=== PATIENT | female | born 1945 | race Hispanic/Latino ===

== ENCOUNTER 2018-08-12 02:53 | Inpatient (IN) | payer MEDICARE ==
[2018-08-12] MEDS ORDERED: NACL 0.9% 1000 ML 1,000 ML ONE (03:14)
[2018-08-12] MEDS ORDERED: NACL 0.9% 1000 ML 1,000 ML IV ONE ×2 (03:20→20:24)
[2018-08-12] MEDS ORDERED: LOPRESSOR IV ONE (03:20)
[2018-08-12 03:43] LABS: Basophils % (Auto) 0.4 % (0.0-1.8); Eosinophils # (Auto) 0.1 K/mm3 (0.0-0.4); Eosinophils % (Auto) 1.7 % (0.0-4.3); Hematocrit 38.1 % (30.3-42.9); Hemoglobin 13.1 gm/dl (10.1-14.3); Lymphocytes # (Auto) 3.2 K/mm3 (1.2-5.4); Lymphocytes % (Auto) 41.1 % (13.4-35.0); Mean Corpuscular HGB Conc 34 % (30-34); Mean Corpuscular Volume 87 fl (79-97); Monocytes # (Auto) 0.7 K/mm3 (0.0-0.8); Monocytes % (Auto) 8.4 % (0.0-7.3); Platelet Count 194 K/mm3 (140-440); Red Cell Distribution Width 14.2 % (13.2-15.2)
[2018-08-12 03:52] LABS: INR 0.92 (0.87-1.13)
[2018-08-12 03:53] LABS: Partial Thromboplastin Time 25.4 Sec. (24.2-36.6)
--- NOTE | 2018-08-12 03:55 | Emergency Department Report ---
ED Palpitations HPI - General Chief Complaint: Arrhythmia/Palpitations Stated Complaint: CHEST PAIN Time Seen by Provider: 08/12/18 03:11 Source: patient, family, EMS Mode of arrival: Stretcher Limitations: No Limitations - History of Present Illness Initial Comments: 73-year-old female presents with complaint of palpitations. I reports history of SVT in the past. States she had an appointment with her fire sprinkler service technician, Dr. Arenas with [facility] 4 days ago. At that time she was in SVT. She was taken to [facility] and admitted. She states she underwent a cardiac cath which was normal. Her rate was under control the patient was discharged home. Tonight, patient states she was at dinner and began having palpitations. EMS was called, adenosine was given, patient was transported to [facility]. Patient was released from the ER. Upon arrival home, patient began actions and palpitations again, so EMS was again called. Patient was again in SVT. EMS gave 6 mg of adenosine which converted patient for a short period of time to sinus rhythm, however the SVT returned the patient was then given 12 mg of adenosine. Patient converted to sinus rhythm, however upon arrival patient is again in SVT. Patient denies chest pain, shortness of breath, nausea or vomiting. MD Complaint: rapid heart beat -: This evening Context: occured during rest Arrythmia History: SVT Associated Symptoms: anxiety. denies: chest pain, shortness of breath, nausea/vomiting Treatments Prior to Arrival: adenosine - Related Data Home Medications Medication Instructions Recorded Confirmed Last Taken ALPRAZolam [Xanax TAB] 0.5 mg PO PRN 08/12/18 08/12/18 08/11/18 Aspirin [Aspirin BABY CHEW TAB] 81 mg PO QDAY 08/12/18 08/12/18 08/11/18 Cetirizine HCl [All Day Allergy] 10 mg PO DAILY 08/12/18 08/12/18 08/11/18 Digoxin 125 mcg PO DAILY 08/12/18 08/12/18 08/11/18 Fenofibrate Nanocrystallized 54 mg PO DAILY 08/12/18 08/12/18 08/11/18 [Fenofibrate] Gabapentin [Neurontin] 300 mg PO Q8HR 08/12/18 08/12/18 08/11/18 Levothyroxine [Synthroid] 50 mcg PO QAM 08/12/18 08/12/18 08/11/18 Metoprolol Tartrate 25 mg PO BID 08/12/18 08/12/18 08/11/18 Rosuvastatin (Nf) [Crestor] 10 mg PO DAILY 08/12/18 08/12/18 08/11/18 Allergies Allergy/AdvReac Type Severity Reaction Status Date / Time codeine AdvReac Shortness Verified 08/12/18 03:20 of Breath ED Review of Systems ROS: Stated complaint: CHEST PAIN Other details as noted in HPI Comment: All other systems reviewed and negative Constitutional: denies: chills, fever Respiratory: denies: shortness of breath Cardiovascular: palpitations. denies: chest pain Gastrointestinal: denies: nausea, vomiting ED Past Medical Hx - Past Medical History Previous Medical History?: Yes Additional medical history: SVT, heart murmur - Social History Smoking Status: Never Smoker Substance Use Type: None - Medications Home Medications: Home Medications Medication Instructions Recorded Confirmed Last Taken Type ALPRAZolam [Xanax TAB] 0.5 mg PO PRN 08/12/18 08/12/18 08/11/18 History Aspirin [Aspirin BABY CHEW TAB] 81 mg PO QDAY 08/12/18 08/12/18 08/11/18 History Cetirizine HCl [All Day Allergy] 10 mg PO DAILY 08/12/18 08/12/18 08/11/18 History Digoxin 125 mcg PO DAILY 08/12/18 08/12/18 08/11/18 History Fenofibrate Nanocrystallized 54 mg PO DAILY 08/12/18 08/12/18 08/11/18 History [Fenofibrate] Gabapentin [Neurontin] 300 mg PO Q8HR 08/12/18 08/12/18 08/11/18 History Levothyroxine [Synthroid] 50 mcg PO QAM 08/12/18 08/12/18 08/11/18 History Metoprolol Tartrate 25 mg PO BID 08/12/18 08/12/18 08/11/18 History Rosuvastatin (Nf) [Crestor] 10 mg PO DAILY 08/12/18 08/12/18 08/11/18 History ED Physical Exam - General Limitations: No Limitations General appearance: alert, in no apparent distress - Head Head exam: Present: atraumatic, normocephalic - Eye Eye exam: Present: normal appearance - ENT ENT exam: Present: mucous membranes moist - Neck Neck exam: Present: normal inspection - Respiratory Respiratory exam: Present: normal lung sounds bilaterally. Absent: respiratory distress - Cardiovascular Cardiovascular Exam: Present: normal rhythm, tachycardia - GI/Abdominal GI/Abdominal exam: Present: soft. Absent: distended, tenderness - Extremities Exam Extremities exam: Absent: pedal edema, calf tenderness - Neurological Exam Neurological exam: Present: alert, oriented X3 - Psychiatric Psychiatric exam: Present: normal affect, normal mood - Skin Skin exam: Present: warm, dry, intact, normal color ED Course Vital Signs 08/12/18 08/12/18 08/12/18 02:54 02:57 03:00 Temperature 98.1 F Pulse Rate 156 H 153 H 184 H Respiratory 13 14 Rate Blood Pressure 136/74 136/74 O2 Sat by Pulse 100 100 100 Oximetry 08/12/18 08/12/18 08/12/18 03:16 03:30 03:48 Temperature Pulse Rate 130 H 72 Respiratory 18 14 Rate Blood Pressure 136/74 112/71 112/71 O2 Sat by Pulse 96 97 97 Oximetry 08/12/18 03:49 Temperature Pulse Rate Respiratory Rate Blood Pressure O2 Sat by Pulse 100 Oximetry - Reevaluation(s) Reevaluation #1: 08/12/18 03:55 Pt was given another 12 mg of adenosine upon arrival. This did convert to sinus tachycardia for approx 2 min, after which the SVT returned. Metoprolol 5 mg was given. Pt converted to NSR at a rate of 60-70s. - Consultations Consultation #1: 08/12/18 03:57 Spoke w/ Dr Jaimes w/ [facility]. States if continues to be refractory, place pt on cardizem drip. ED Medical Decision Making - Lab Data Result diagrams: 08/12/18 03:24 08/12/18 03:24 - EKG Data -: EKG Interpreted by Me EKG shows normal: axis, QRS complexes Rate: tachycardia (rate 167) - EKG Data Interpretation: other (SVT w/ ST depressions diffusely) 08/12/18 04:00 Following beta navneet, pt converted to NSR rate of 69. Repeat EKG shows resolution of ST depressions, normal intervals, QRS complexes. - Radiology Data Radiology results: report reviewed, image reviewed - Medical Decision Making 73-year-old female with history of SVT. Patient received multiple doses of adenosine and tonight with conversion of her rhythm to sinus by only for a brief period of time. Patient is given metoprolol 5 mg which has Patient is in normal sinus rhythm, rate between the 60s and 70s for the last 2.5 hours. Workup unremarkable. Financial Administration Officer, Dr Jaimes, advised to start cardizem drip if SVT was refractory. Patient has not required cardizem while here in ED. Spoke w/ Dr Johnson, hospitalist, agrees to admit the patient. - Differential Diagnosis SVT, ACS, pulm edema Critical Care Time: Yes Critical care time in (mins) excluding proc time.: 35 Critical care attestation.: If time is entered above; I have spent that time in minutes in the direct care of this critically ill patient, excluding procedure time. Critical Care Time: 35 minutes ED Disposition Clinical Impression: SVT (supraventricular tachycardia) Disposition: DC-09 OP ADMIT IP TO THIS HOSP Is pt being admited?: Yes Condition: Stable Time of Disposition: 04:40
[2018-08-12 03:59] LABS: BUN/Creatinine Ratio 13; Blood Urea Nitrogen 9 mg/dL (7-17); Hemolysis Index 17
--- NOTE | 2018-08-12 04:22 | XRay Report ---
FINAL REPORT PROCEDURE: XR CHEST 1V AP TECHNIQUE: Chest radiograph anteroposterior view. CPT 87530 HISTORY: palpitations COMPARISON: No prior studies are available for comparison. FINDINGS: Heart: Normal. Mediastinum/Vessels: Normal. Lungs/Pleural space: Normal. Bony thorax: No acute osseous abnormality. Life support devices: None. IMPRESSION: No acute cardiopulmonary abnormality.
[2018-08-12] MEDS ORDERED: TYLENOL PO PRN (05:32)
[2018-08-12] MEDS ORDERED: SODIUM CHLORIDE FLUSH SYRINGE 10 ML IV PRN (05:32)
[2018-08-12] MEDS ORDERED: ZOFRAN IV PRN (05:32)
--- NOTE | 2018-08-12 05:32 | History and Physical Report ---
<LENORA MATTHEW - Last Filed: 08/12/18 05:43> History of Present Illness Date of examination: 08/12/18 Date of admission: 08/12/2018 Chief complaint: Palpitation History of present illness: Patient is a 73-year-old female with past medical history of hypothyroidism, anxiety, irregular heart rate, peripheral neuropathy, hypertension hy perlipidemia who presents to the ER with complaint of palpitations. Patient states that earlier this evening she had an episode of SVT and was taken to [facility] by EMS, she was seen and her SVT was converted, and she was discharged home. Patient states that she was on her way back home the symptoms restarted again, she was having severe palpitation and EMS was called and take her to [facility]. Patient states that earlier this week (4 days ago) she saw her repatcher (Dr. Arenas) with [facility] who had performed a heart cath, which was she was told was within normal limits, she also states that she had an echocardiogram last month with her cardiologists. Patient reports a long standing history of SVTs, she reports palpitations and diaphoresis, patient denies LOC, denies headache, denies dizziness, denies chest pain, denies shortness of breath. On arrival to the ER patient's heart rate was 153, patient had already received 6 mg of adenosine by EMS prior to arrival, and converted to sinus rhythm. Patient was given an additional of 12 mg of IV adenosine in the ER and converted back to sinus rhythm. Patient remains in sinus rhythm with a heart rate of 69, she is admitted for monitoring of SVT, cardiology is consulted for further evaluation. Past History Past Medical History: arrhythmia, hypertension, hyperlipidemia, hypothyroidism Past Surgical History: PTCA Social history: no significant social history, lives with family Family history: no significant family history Medications and Allergies Allergies Allergy/AdvReac Type Severity Reaction Status Date / Time codeine AdvReac Shortness Verified 08/12/18 03:20 of Breath Home Medications Medication Instructions Recorded Confirmed Last Taken Type ALPRAZolam [Xanax TAB] 0.5 mg PO PRN 08/12/18 08/12/18 08/11/18 History Aspirin [Aspirin BABY CHEW TAB] 81 mg PO QDAY 08/12/18 08/12/18 08/11/18 History Cetirizine HCl [All Day Allergy] 10 mg PO DAILY 08/12/18 08/12/18 08/11/18 History Digoxin 125 mcg PO DAILY 08/12/18 08/12/18 08/11/18 History Fenofibrate Nanocrystallized 54 mg PO DAILY 08/12/18 08/12/18 08/11/18 History [Fenofibrate] Gabapentin [Neurontin] 300 mg PO Q8HR 08/12/18 08/12/18 08/11/18 History Levothyroxine [Synthroid] 50 mcg PO QAM 08/12/18 08/12/18 08/11/18 History Metoprolol Tartrate 25 mg PO BID 08/12/18 08/12/18 08/11/18 History Rosuvastatin (Nf) [Crestor] 10 mg PO DAILY 08/12/18 08/12/18 08/11/18 History Active Meds: Active Medications Enoxaparin Sodium (Lovenox) 40 mg SUB-Q QDAY ALISHA Review of Systems Cardiovascular: palpitations Exam - Constitutional Vitals: Temp Pulse Resp BP Pulse Ox 98.1 F 72 14 112/71 100 08/12/18 02:57 08/12/18 03:30 08/12/18 03:30 08/12/18 03:48 08/12/18 03:49 General appearance: Present: no acute distress - EENT Eyes: Present: EOM intact ENT: hearing intact - Neck Neck: Present: supple - Respiratory Respiratory effort: normal - Cardiovascular Rhythm: regular Heart Sounds: Present: S1 & S2 - Extremities Extremities: no ischemia, No edema Peripheral Pulses: within normal limits - Abdominal General gastrointestinal: Present: soft, non-distended - Integumentary Integumentary: Present: warm, dry - Musculoskeletal Musculoskeletal: strength equal bilaterally - Psychiatric Psychiatric: cooperative - Neurologic Neurologic: moves all extremities Results - Labs CBC & Chem 7: 08/12/18 03:24 08/12/18 03:24 Labs: Laboratory Last Values WBC 7.8 K/mm3 (4.5-11.0) 08/12/18 03:24 RBC 4.40 M/mm3 (3.65-5.03) 08/12/18 03:24 Hgb 13.1 gm/dl (10.1-14.3) 08/12/18 03:24 Hct 38.1 % (30.3-42.9) 08/12/18 03:24 MCV 87 fl (79-97) 08/12/18 03:24 MCH 30 pg (28-32) 08/12/18 03:24 MCHC 34 % (30-34) 08/12/18 03:24 RDW 14.2 % (13.2-15.2) 08/12/18 03:24 Plt Count 194 K/mm3 (140-440) 08/12/18 03:24 Lymph % (Auto) 41.1 % (13.4-35.0) H 08/12/18 03:24 Hartley % (Auto) 8.4 % (0.0-7.3) H 08/12/18 03:24 Eos % (Auto) 1.7 % (0.0-4.3) 08/12/18 03:24 Baso % (Auto) 0.4 % (0.0-1.8) 08/12/18 03:24 Lymph # 3.2 K/mm3 (1.2-5.4) 08/12/18 03:24 [place] # 0.7 K/mm3 (0.0-0.8) 08/12/18 03:24 Eos # 0.1 K/mm3 (0.0-0.4) 08/12/18 03:24 Baso # 0.0 K/mm3 (0.0-0.1) 08/12/18 03:24 Seg Neutrophils % 48.4 % (40.0-70.0) 08/12/18 03:24 Seg Neutrophils # 3.7 K/mm3 (1.8-7.7) 08/12/18 03:24 PT 12.8 Sec. (12.2-14.9) 08/12/18 03:24 INR 0.92 (0.87-1.13) 08/12/18 03:24 APTT 25.4 Sec. (24.2-36.6) 08/12/18 03:24 Sodium 143 mmol/L (137-145) 08/12/18 03:24 Potassium 3.7 mmol/L (3.6-5.0) 08/12/18 03:24 Chloride 107.0 mmol/L (98-107) 08/12/18 03:24 Carbon Dioxide 24 mmol/L (22-30) 08/12/18 03:24 Anion Gap 16 mmol/L 08/12/18 03:24 BUN 9 mg/dL (7-17) 08/12/18 03:24 Creatinine 0.7 mg/dL (0.7-1.2) 08/12/18 03:24 Estimated GFR > 60 ml/min 08/12/18 03:24 BUN/Creatinine Ratio 13 % 08/12/18 03:24 Glucose 126 mg/dL (65-100) H 08/12/18 03:24 Calcium 9.0 mg/dL (8.4-10.2) 08/12/18 03:24 Troponin T 0.021 ng/mL (0.00-0.029) 08/12/18 03:24 Assessment and Plan Assessment and plan: 1. Recurrent SVT 2. Anxiety disorder 3. Hypothyroidism 4. Hypertension 5. Hyperlipidemia 6. Seasonal allergies Plan: Admit to [facility] for SVT Continue CE Q6hr x2 mo Monitor for chest pain/arrythmias Xanax PRN for anxiety/restlessness Consult cardiology for recurrent SVT Resume home meds Further plan per cardiology recommendation Plan discussed with patient and spouse, voiced understanding Pt's condition and plan of care discussed with Dr. Johnson Advance Directives: Yes VTE prophylaxis?: Chemical Plan of care discussed with patient/family: Yes <ANTONI JOHNSON - Last Filed: 08/12/18 06:56> History of Present Illness Date of admission: 08/12/18 05:09 Medications and Allergies Active Meds: Active Medications Acetaminophen (Tylenol) 650 mg PO Q4H PRN PRN Reason: Pain MILD(1-3)/Fever >100.5/STODDARD Aspirin (Ecotrin) 325 mg PO QDAY ALISHA Enoxaparin Sodium (Lovenox) 40 mg SUB-Q QDAY ALISHA Ondansetron HCl (Zofran) 4 mg IV Q8H PRN PRN Reason: Nausea And Vomiting Sodium Chloride (Sodium Chloride Flush Syringe 10 Ml) 10 ml IV BID ALISHA Sodium Chloride (Sodium Chloride Flush Syringe 10 Ml) 10 ml IV PRN PRN PRN Reason: LINE FLUSH Exam - Constitutional Vitals: Temp Pulse Resp BP Pulse Ox 98.1 F 68 14 124/66 95 08/12/18 02:57 08/12/18 06:00 08/12/18 06:00 08/12/18 06:00 08/12/18 06:00 Results - Labs CBC & Chem 7: 08/12/18 05:53 08/12/18 05:53 Labs: Laboratory Last Values WBC 7.7 K/mm3 (4.5-11.0) 08/12/18 05:53 RBC 4.25 M/mm3 (3.65-5.03) 08/12/18 05:53 Hgb 12.8 gm/dl (10.1-14.3) 08/12/18 05:53 Hct 36.2 % (30.3-42.9) 08/12/18 05:53 MCV 85 fl (79-97) 08/12/18 05:53 MCH 30 pg (28-32) 08/12/18 05:53 MCHC 35 % (30-34) H 08/12/18 05:53 RDW 14.4 % (13.2-15.2) 08/12/18 05:53 Plt Count 204 K/mm3 (140-440) 08/12/18 05:53 Lymph % (Auto) 27.1 % (13.4-35.0) 08/12/18 05:53 Hartley % (Auto) 7.8 % (0.0-7.3) H 08/12/18 05:53 Eos % (Auto) 1.2 % (0.0-4.3) 08/12/18 05:53 Baso % (Auto) 0.5 % (0.0-1.8) 08/12/18 05:53 Lymph # 2.1 K/mm3 (1.2-5.4) 08/12/18 05:53 Hartley # 0.6 K/mm3 (0.0-0.8) 08/12/18 05:53 Eos # 0.1 K/mm3 (0.0-0.4) 08/12/18 05:53 Baso # 0.0 K/mm3 (0.0-0.1) 08/12/18 05:53 Seg Neutrophils % 63.4 % (40.0-70.0) 08/12/18 05:53 Seg Neutrophils # 4.9 K/mm3 (1.8-7.7) 08/12/18 05:53 PT 12.8 Sec. (12.2-14.9) 08/12/18 03:24 INR 0.92 (0.87-1.13) 08/12/18 03:24 APTT 25.4 Sec. (24.2-36.6) 08/12/18 03:24 Sodium 142 mmol/L (137-145) 08/12/18 05:53 Potassium 4.0 mmol/L (3.6-5.0) 08/12/18 05:53 Chloride 107.1 mmol/L (98-107) H 08/12/18 05:53 Carbon Dioxide 25 mmol/L (22-30) 08/12/18 05:53 Anion Gap 14 mmol/L 08/12/18 05:53 BUN 9 mg/dL (7-17) 08/12/18 05:53 Creatinine 0.6 mg/dL (0.7-1.2) L 08/12/18 05:53 Estimated GFR > 60 ml/min 08/12/18 05:53 BUN/Creatinine Ratio 15 % 08/12/18 05:53 Glucose 113 mg/dL (65-100) H 08/12/18 05:53 Calcium 9.1 mg/dL (8.4-10.2) 08/12/18 05:53 Troponin T 0.021 ng/mL (0.00-0.029) 08/12/18 03:24 Assessment and Plan Assessment and plan: 73-year-old woman with history of SVT, anxiety, hypothyroidism, hypertension, hyperlipidemia comes emergency room for SVT. She was seen at [place] earlier today and was discharged for SVT. On the way home she went back into SVT and came here to the emergency room for further evaluation. She has had multiple episodes of SVT, responsive to adenosine. She was also hospitalized at [place] on Tuesday for SVT, status post cardiac cath which was normal. Patient seen and examined with transportation, agree with above
[2018-08-12 06:02] LABS: Basophils % (Auto) 0.5 % (0.0-1.8); Eosinophils # (Auto) 0.1 K/mm3 (0.0-0.4); Eosinophils % (Auto) 1.2 % (0.0-4.3); Hematocrit 36.2 % (30.3-42.9); Hemoglobin 12.8 gm/dl (10.1-14.3); Lymphocytes # (Auto) 2.1 K/mm3 (1.2-5.4); Lymphocytes % (Auto) 27.1 % (13.4-35.0); Mean Corpuscular HGB Conc 35 % (30-34); Mean Corpuscular Volume 85 fl (79-97); Monocytes # (Auto) 0.6 K/mm3 (0.0-0.8); Monocytes % (Auto) 7.8 % (0.0-7.3); Platelet Count 204 K/mm3 (140-440); Red Blood Count 4.25 M/mm3 (3.65-5.03); Red Cell Distribution Width 14.4 % (13.2-15.2)
[2018-08-12 06:37] LABS: BUN/Creatinine Ratio 15; Blood Urea Nitrogen 9 mg/dL (7-17); Calcium 9.1 mg/dL (8.4-10.2); Hemolysis Index 6
[2018-08-12] MEDS ORDERED: XANAX PO PRN (07:00)
[2018-08-12 09:09] LABS: Creatine Kinase MB 3.5 ng/mL (0.0-4.0)
[2018-08-12] MEDS ORDERED: LOPRESSOR PO SCH (10:00)
[2018-08-12] MEDS ORDERED: LOVENOX SUB-Q SCH (10:00)
[2018-08-12] MEDS ORDERED: BABY ASPIRIN PO SCH (10:00)
[2018-08-12] MEDS ORDERED: TRICOR PO SCH (10:00)
[2018-08-12] MEDS ORDERED: SYNTHROID PO SCH (10:00)
[2018-08-12] MEDS ORDERED: SODIUM CHLORIDE FLUSH SYRINGE 10 ML IV SCH (10:00)
--- NOTE | 2018-08-12 10:10 | Consultation ---
History of Present Illness Consult date: 08/12/18 Consult reason: tachycardia History of present illness: 73 YO woman with known h/o recurrent SVT admitted to hospital with recurrent episode of SVT which was terminated with IV adenosine. She normally follows with Dr Arenas and has been treated with low dose beta navneet She has had multiple recurrent episodes of SVT which have been adenosine responsive over the last month. She has recently been evaluated at [facility] and [place] due to SVT. She reports she had coronary angiogram while hospitalized at [facility] which revealed no significant CAD. Her most recent echocardiogram on 02/10/2018 revealed EF of 55-60% with no significant valvular lesions. ECG on presentation is consistent with narrow complex short RP tachycardia at [address] depression. Past History Past Medical History: arrhythmia, hypertension, hyperlipidemia, hypothyroidism, other (SVT) Social history: no significant social history, lives with family Family history: no significant family history Medications and Allergies Allergies Allergy/AdvReac Type Severity Reaction Status Date / Time codeine AdvReac Shortness Verified 08/12/18 03:20 of Breath Home Medications Medication Instructions Recorded Confirmed Last Taken Type ALPRAZolam [Xanax TAB] 0.5 mg PO PRN 08/12/18 08/12/18 08/11/18 History Aspirin [Aspirin BABY CHEW TAB] 81 mg PO QDAY 08/12/18 08/12/18 08/11/18 History Cetirizine HCl [All Day Allergy] 10 mg PO DAILY 08/12/18 08/12/18 08/11/18 History Digoxin 125 mcg PO DAILY 08/12/18 08/12/18 08/11/18 History Fenofibrate Nanocrystallized 54 mg PO DAILY 08/12/18 08/12/18 08/11/18 History [Fenofibrate] Gabapentin [Neurontin] 300 mg PO Q8HR 08/12/18 08/12/18 08/11/18 History Levothyroxine [Synthroid] 50 mcg PO QAM 08/12/18 08/12/18 08/11/18 History Metoprolol Tartrate 25 mg PO BID 08/12/18 08/12/18 08/11/18 History Rosuvastatin (Nf) [Crestor] 10 mg PO DAILY 08/12/18 08/12/18 08/11/18 History Active Meds: Active Medications Acetaminophen (Tylenol) 650 mg PO Q4H PRN PRN Reason: Pain MILD(1-3)/Fever >100.5/STODDARD Alprazolam (Xanax) 0.5 mg PO BID PRN PRN Reason: Anxiety Last Admin: 08/12/18 09:58 Dose: 0.5 mg Documented by: Aspirin (Baby Aspirin) 81 mg PO QDAY [facility] Last Admin: 08/12/18 09:53 Dose: 81 mg Documented by: Atorvastatin Calcium (Lipitor) 20 mg PO QHS [facility] Digoxin (Lanoxin) 0.125 mg PO DAILY@1700 [facility] Enoxaparin Sodium (Lovenox) 40 mg SUB-Q QDAY [facility] Last Admin: 08/12/18 09:53 Dose: 40 mg Documented by: Fenofibrate (Tricor) 48 mg PO DAILY [facility] Gabapentin (Neurontin) 300 mg PO Q8HR [facility] Levothyroxine Sodium (Synthroid) 50 mcg PO QAM@0600 [facility] Last Admin: 08/12/18 09:54 Dose: 50 mcg Documented by: Metoprolol Tartrate (Lopressor) 25 mg PO BID [facility] Last Admin: 08/12/18 09:53 Dose: 25 mg Documented by: Ondansetron HCl (Zofran) 4 mg IV Q8H PRN PRN Reason: Nausea And Vomiting Sodium Chloride (Sodium Chloride Flush Syringe 10 Ml) 10 ml IV BID [facility] Last Admin: 08/12/18 09:59 Dose: 10 ml Documented by: Sodium Chloride (Sodium Chloride Flush Syringe 10 Ml) 10 ml IV PRN PRN PRN Reason: LINE FLUSH Review of Systems All systems: negative (per hpi) Physical Examination Vital Signs Pulse Pulse Ox 156 H 100 08/12/18 02:54 08/12/18 02:54 General appearance: no acute distress Neck: Positive: neck supple Cardiac: Positive: Reg Rate and Rhythm. Negative: Audible Murmur Lungs: Positive: clear to auscultation Abdomen: Negative: Mass Extremities: Absent: edema Results 08/12/18 05:53 08/12/18 05:53 Cardiac Enzymes 08/12/18 Range/Units 08:23 CK-MB (CK-2) 3.5 (0.0-4.0) ng/mL Coagulation 08/12/18 Range/Units 03:24 PT 12.8 (12.2-14.9) Sec. INR 0.92 (0.87-1.13) APTT 25.4 (24.2-36.6) Sec. CBC 08/12/18 08/12/18 Range/Units 03:24 05:53 WBC 7.8 7.7 (4.5-11.0) K/mm3 RBC 4.40 4.25 (3.65-5.03) M/mm3 Hgb 13.1 12.8 (10.1-14.3) gm/dl Hct 38.1 36.2 (30.3-42.9) % Plt Count 194 204 (140-440) K/mm3 Lymph # 3.2 2.1 (1.2-5.4) K/mm3 [place] # 0.7 0.6 (0.0-0.8) K/mm3 Eos # 0.1 0.1 (0.0-0.4) K/mm3 Baso # 0.0 0.0 (0.0-0.1) K/mm3 Comprehensive Metabolic Panel 08/12/18 08/12/18 Range/Units 03:24 05:53 Sodium 143 142 (137-145) mmol/L Potassium 3.7 4.0 (3.6-5.0) mmol/L Chloride 107.0 107.1 H (98-107) mmol/L Carbon Dioxide 24 25 (22-30) mmol/L BUN 9 9 (7-17) mg/dL Creatinine 0.7 0.6 L (0.7-1.2) mg/dL Glucose 126 H 113 H (65-100) mg/dL Calcium 9.0 9.1 (8.4-10.2) mg/dL Assessment and Plan Recurrent SVT suggestive of AVNRT Recommend: Increase beta navneet and stop digoxin. Discussed EP study, possible ablation - she wants to proceed as outpatient (can not be done at this facility). OK to discharge from cardiac perspective. F/U with me this tuesday08/15/18 in [place] office at 9 AM - will schedule ab boucher.
--- NOTE | 2018-08-12 11:07 | Discharge Summary ---
Providers - Providers Date of Admission: 08/12/18 05:09 Date of discharge: 08/12/18 Attending physician: USSAN SCHRADER 08/12/18 Consult to Cardiac Rehabilitation [CONS] Routine Reason For Exam: Phase I 08/12/18 03:29 Consult to Physician [CONS] Stat Comment: Dr. Zavala spoke with Dr. Jaimes @ [phone] Consulting Provider: CAROLINE JAIMES Physician Instructions: Reason For Exam: svt Primary care physician: SHAREE SALDANA Hospitalization Reason for admission: SVT Condition: Stable Hospital course: 73 YO woman with known h/o recurrent SVT admitted to hospital with recurrent episode of SVT which was terminated with IV adenosine. She normally follows with Dr Arenas and has been treated with low dose beta navneet She has had multiple recurrent episodes of SVT which have been adenosine responsive over the last month. She has recently been evaluated at [facility] and [place] due to SVT. She reports she had coronary angiogram while hospitalized at [facility] which revealed no significant CAD. Her most recent echocardiogram on 02/10/2018 revealed EF of 55-60% with no significant valvular lesions. ECG on presentation is consistent with narrow complex short RP tachycardia at [address] depression. Cardiology saw the pt in consultation and set her up for office visit on Tuesday 9am to have ablation treatment. Pt will be discharged on increased dose of b- navneet. Discharge time 32 minutes Disposition: DC-01 TO HOME OR SELFCARE Time spent for discharge: 32 - Discharge Diagnoses (1) SVT (supraventricular tachycardia) Status: Acute Core Measure Documentation - Palliative Care Palliative Care/ Comfort Measures: Not Applicable - Core Measures Any of the following diagnoses?: none Exam - Constitutional Vitals: Temp Pulse Resp BP Pulse Ox 98.5 F 69 18 130/73 98 08/12/18 08:03 08/12/18 09:53 08/12/18 08:03 08/12/18 09:53 08/12/18 08:03 General appearance: Present: no acute distress, well-nourished - EENT Eyes: Present: PERRL ENT: hearing intact, clear oral mucosa - Neck Neck: Present: supple, normal ROM - Respiratory Respiratory effort: normal Respiratory: bilateral: CTA - Cardiovascular Heart Sounds: Present: S1 & S2. Absent: rub, click - Extremities Extremities: pulses symmetrical, No edema Peripheral Pulses: within normal limits - Abdominal General gastrointestinal: Present: soft, non-tender, non-distended, normal bowel sounds Female genitourinary: Present: normal - Integumentary Integumentary: Present: clear, warm, dry - Musculoskeletal Musculoskeletal: gait normal, strength equal bilaterally - Psychiatric Psychiatric: appropriate mood/affect, intact judgment & insight - Neurologic Neurologic: CNII-XII intact, moves all extremities Plan Activity: no restrictions Weight Bearing Status: Full Weight Bearing Diet: regular Follow up with: CHILO ZAVALA MD [Staff Physician] - 3-5 Days YULI ARELLANO MD [Staff Physician] - 7 Days Prescriptions: Metoprolol [Lopressor TAB] 50 mg PO BID #60 tablet
[2018-08-12 11:42] VITALS: BP 107/68
[2018-08-12] MEDS ORDERED: NEURONTIN PO SCH (14:00)
[2018-08-12] MEDS ORDERED: LANOXIN PO SCH (17:00)
[2018-08-13] MEDS ORDERED: ECOTRIN PO SCH (10:00)
== END 2018-08-12 12:55 | disposition home or self-care (01) | DRG 310 ==
LOC: ED 02:53 → 4A 05:09
PROVIDERS: ADMIT Internal Medicine; ATTEND Hospitalist
DX: I47.1 Supraventricular tachycardia (principal); I10 Essential (primary) hypertension; E03.9 Hypothyroidism, unspecified; F41.9 Anxiety disorder, unspecified; E11.40 Type 2 diabetes mellitus with diabetic neuropathy, unspecified; J30.2 Other seasonal allergic rhinitis; E78.5 Hyperlipidemia, unspecified; Z88.5 Allergy status to narcotic agent; Z79.82 Long term (current) use of aspirin; Z79.899 Other long term (current) drug therapy; Z98.61 Coronary angioplasty status
CPT/HCPCS: 36415; 71045; 80048; 82550; 82553; 84484; 85025; 85610; 85730; 93005; 93010; G0378; J0153; J1650; J7030